=== PATIENT | female | born 1975 | race Caucasian/White ===

== ENCOUNTER 2016-05-04 16:03 | Emergency (ER) | payer OTHER ==
[~2016-05-04] VITALS: Ht 157.5 cm; Wt 81.8 kg
[2016-05-04 16:04] VITALS: BP 145/87; PULSE 101; RESP 15; TEMP 97.9; O2SAT 95
[2016-05-04] MEDS ORDERED: PROPARACAINE HCL 0.5% OPHT SOLN 15 ML BTL EACH EYE ONE (16:45)
[2016-05-04] MEDS ORDERED: HYDR-3533 PO (18:09)
--- NOTE | 2016-05-04 18:18 | PD ---
HPI Chief Complaint: Eye Problems/Injury Time Seen by Provider: 17:30 Travel History International Travel<30 days: No Contact w/Intl Traveler<30days: No Traveled to known affect area: No History of Present Illness HPI Patient 40-year-old female with chief complaint of "corneal abrasion in the right eye ". She states that she went to urgent care earlier today was discharged at 1 PM. She states that 9 PM last evening she began having foreign body sensation in the right while lying in bed. She denies any trauma or injury to the eye. No high-speed grinding or drooling. After the proparacaine wore off she began having discomfort again. She was given ofloxacin which she uses once. They told her if it worsen to come in. She states that she is unable to open her eyes due to the pain and photophobia. She still has a foreign body sensation in the lateral aspect of the cornea. She states that they did a stain and told her there was no foreign body but there was an abrasion. She has photophobia in the right eye. She denies any symptoms in the left eye. Small amount of ear drainage. She wears glasses only, no contact lenses. She denies fever, chills, ENT/URI symptoms. No history of rheumatologic diseases. She denies headache and vision loss. Last tetanus vaccine was within the last 2 months. [facility] Past Medical History Medical History: Denies Significant Hx Diminished Hearing: No ?: Not LMP: 04/06/16 Tubal Ligation: Yes Past Surgical History Section: Yes (X2) Social History Alcohol Use: No Tobacco Use: No Substance Use: No Allergies-Medications (Allergen,Severity, Reaction): Coded Allergies: No Known Allergies (Unverified , 05/04/16) Reported Meds & Prescriptions Reported Meds & Active Scripts Active Lortab (Hydrocodone-Acetaminophen) 5-325 Mg Tab 1 Tab PO Q8HR PRN Review of Systems Except as stated in HPI: all other systems reviewed are Neg Physical Exam Narrative GENERAL: Well-developed and well-nourished adult female in no acute distress. SKIN: Warm and dry. Good turgor without tenting. HEAD: Normocephalic and atraumatic. EYES: PERRL bilaterally, 5mm. EOMI bilaterally. Mild right conjunctival injection without limbal injection, no icterus present. No proptosis. Lids without edema or erythema. Fluorescein stain reveals some uptake at the 8 o' clock position and there is a small brown shape oblong foreign object superficially embedded in the cornea. Negative Rodrigue sign. Slit lamp reveals this object to be superficially embedded. There is no flare cells. No hyphema or hypopyon. Visual ascencio normal to confrontation bilaterally. No consensual photophobia. Lid eversion the right eye reveals no foreign bodies retained. ENT:Buccal mucosa pink and moist. Oropharynx free of erythema, tonsillar hypertrophy, masses, swelling, asymmetry and exudates. Uvula midline and airway patent. NECK: Supple, no midline tenderness, crepitus or step-offs. Trachea midline, no JVD. No cervical or facial lymphadenopathy. RESPIRATORY: No distress or use of accessory muscles. MUSCULOSKELETAL: No gait disturbances. Patient freely moving all four extremities spontaneously. Extremities without clubbing, cyanosis, or edema. No obvious deformities. NEUROLOGIC: CN II-XII grossly intact. Awake and alert. Motor grossly within normal limits. Normal speech. PSYCHIATRIC: Appropriate mood and affect; insight and judgment normal. Data Data Last Documented VS Vital Signs Date Time Temp Pulse Resp B/P Pulse Ox O2 Delivery O2 Flow Rate FiO2 05/04/16 16:04 97.9 101 15 145/87 95 Orders Proparacaine 0.5% Opth Soln (Alcaine 0.5 (05/04/16 16:45) [facility] Medical Decision Making Medical Screen Exam Complete: Yes Emergency Medical Condition: Yes Differential Diagnosis EYE foreign body versus corneal abrasion versus corneal ulceration Narrative Course Patient is a 40-year-old female presenting with history and physical suggestive of a corneal abrasion and foreign body in the right eye. She was seen at urgent care earlier and given ofloxacin drops but after the proparacaine wore off and the pain returned she return for reevaluation. Visual acuity normal. There is a small oblong superficial foreign object in the cornea. I was able to remove this with gentle pressure with a cotton swab. This is shallow and does not appear to be ulcerated. There is no evidence of leukocytes in the wound. Patient was given prescription for Lortab for pain and recommended increased frequency of the ofloxacin and follow-up with ophthalmology tomorrow. It was reinforced with the patient to follow-up could result in permanent blindness and loss of the eye.See discharge paperwork for further instructions. The plan was discussed with the patient who acknowledged their understanding and agreement. Reinforced the follow-up with primary care is critically important. Patient instructed on emergent conditions that should prompt return to ED. Diagnosis Primary Impression: Eye foreign body Qualified Code: T15.91XA - Eye foreign body, right, initial encounter Additional Impression: Corneal abrasion Qualified Code: S05.01XA - Corneal abrasion, right, initial encounter Referrals: Aníbal Noriega MD Patient Instructions: Corneal Abrasion (ED), General Instructions Additional Instructions: Take pain medicine as prescribed Admit per cautioned Please use your ofloxacin ophthalmic as follows: 1-2 drops in the right eye every 30 minutes while awake and 4-6 hours while sleeping, then resume every 30 minutes until see the eye doctor tomorrow Call Dr. Aníbal Noriega tomorrow morning for follow-up Return to the ED for any acute worsening of symptoms Med/Other Pt SpecificInfo: Prescription(s) given Scripts Hydrocodone-Acetaminophen (Lortab)5-325 Mg Tab1 Tab PO Q8HR PRN (PAIN) #6 TAB Ref 0 Prov:Doug Linn MD 05/04/16 Disposition: 01 DISCHARGE HOME Condition: Stable Andreas Melara III May 04, 2016 18:17
== END 2016-05-04 18:37 | disposition home or self-care (01) ==
LOC: NEPB 16:03
DX: T15.01XA Foreign body in cornea, right eye, initial encounter (principal); X58.XXXA Exposure to other specified factors, initial encounter
CPT/HCPCS: 65220

== ENCOUNTER 2016-06-06 13:59 | Emergency (ER) | payer MEDICAID, OTHER ==
[~2016-06-06] VITALS: Ht 157.5 cm; Wt 81.9 kg
[~2016-06-06 13:59] MED LIST: HYDR-3533 PO
[2016-06-06 14:08] VITALS: BP 132/81; PULSE 76; RESP 16; TEMP 98.2; O2SAT 99
== END 2016-06-06 15:49 | disposition left against medical advice (07) ==
LOC: PHED 13:59
DX: K08.89 Other specified disorders of teeth and supporting structures (principal)
CPT/HCPCS: 99281

== ENCOUNTER 2016-06-09 06:32 | Emergency (ER) | payer MEDICAID ==
[~2016-06-09] VITALS: Ht 157.5 cm; Wt 81.7 kg
[2016-06-09 06:38] VITALS: BP 119/73; PULSE 80; RESP 18; TEMP 97.9; O2SAT 98
[2016-06-09 07:02] VITALS: BP 111/73; PULSE 80; RESP 16; TEMP 97.9; O2SAT 98
[2016-06-09] MEDS ORDERED: NAPR500T PO (07:22)
[2016-06-09] MEDS ORDERED: PENI500T PO (07:22)
--- NOTE | 2016-06-09 07:23 | PD ---
HPI Chief Complaint: Oral / Dental Pain or Problem Time Seen by Provider: 07:14 Travel History International Travel<30 days: No Contact w/Intl Traveler<30days: No Traveled to known affect area: No History of Present Illness HPI This 41-year-old female who reports that she has dental pain involving the right lower jaw, constant for a week and a half, feeling like a sharp stabbing pain, worse with chewing. The patient says she has an impacted wisdom tooth and the dentist can't see her till Thursday. She denies any fevers or chills. She's been taking ibuprofen but that has not been helping. She says the last controlled substance prescription she filled was a week and half ago for the same pain. She doesn't remember prior to that. PFSH Past Medical History Medical History: Denies Significant Hx Diminished Hearing: No Tetanus Vaccination: < 5 Years Influenza Vaccination: Yes ?: Not LMP: 05/17/16 Tubal Ligation: Yes Past Surgical History Section: Yes (X2) Social History Alcohol Use: No Tobacco Use: No Substance Use: No Allergies-Medications (Allergen,Severity, Reaction): Coded Allergies: No Known Allergies (Unverified , 06/09/16) Reported Meds & Prescriptions Reported Meds & Active Scripts Active No Active Prescriptions or Reported Medications Review of Systems Except as stated in HPI: all other systems reviewed are Neg Physical Exam Narrative GENERAL: Well-nourished, well-developed patient. SKIN: Warm and dry. HEAD: Normocephalic. EYES: No scleral icterus. No injection or drainage. ENT: No dental fractures, induration, erythema or evidence of abscess NECK: Supple, trachea midline. CARDIOVASCULAR: Regular rate and rhythm without murmurs. RESPIRATORY: Breath sounds equal bilaterally. No accessory muscle use. GASTROINTESTINAL: Abdomen soft, non-tender, nondistended. MUSCULOSKELETAL: No cyanosis, or edema. Data Data Last Documented VS Vital Signs Date Time Temp Pulse Resp B/P Pulse Ox O2 Delivery O2 Flow Rate FiO2 06/09/16 07:02 97.9 80 16 111/73 98 MDM Medical Decision Making Medical Screen Exam Complete: Yes Emergency Medical Condition: Yes Differential Diagnosis Dental pain, dental abscess, Chau angina Narrative Course This is a 41-year-old female who presents to the emergency department with dental pain. She has no appointment with a dentist on Thursday. She has a very benign exam. E-forsce demonstrates that she is filled 5 controlled substance prescriptions since May 04 in 1 month from 4 different providers. I suspect this is drug-seeking behavior. Patient will be discharged on anti- inflammatories and antibiotics. Diagnosis Primary Impression: Pain, dental Patient Instructions: General Instructions Additional Instructions: If you develop increasing pain, fevers or chills or difficulty swallowing return to the emergency room. Med/Other Pt SpecificInfo: Prescription(s) given Scripts Naproxen 500 Mg [id number] Mg PO BID PRN (PAIN SCALE 4 TO 10) #20 TAB Prov:Yuliet Kerns MD 06/09/16 Penicillin V Potassium 500 Mg [id number] Mg PO Q6H 5 Days Prov:Yuliet Kerns MD 06/09/16 Disposition: 01 DISCHARGE HOME Condition: Stable Yuliet Kerns MD Jun 09, 2016 07:23
== END 2016-06-09 07:54 | disposition home or self-care (01) ==
LOC: PHED 06:32
DX: K08.89 Other specified disorders of teeth and supporting structures (principal)
CPT/HCPCS: 99282